=== PATIENT | male | born 1960 | race Caucasian/White ===

== ENCOUNTER → 2017-05-21 | Outpatient (CLI) | payer BC, OTHER ==
--- NOTE | 2017-05-21 12:41 | MR ---
EXAMINATION TYPE: MR lumbar spine wo con DATE OF EXAM: 05/21/2017 COMPARISON: NONE HISTORY: radiculopathy TECHNIQUE: Multiplanar, multisequence images of the lumbar spine were acquired. FINDINGS: There is a grade 2 anterolisthesis of L5 on S1 with pars interarticularis defects bilaterally. Remain dominik of the lumbar spine maintains normal alignment. Bone marrow signal is within normal limits. Conus medullaris is unremarkable terminating at T12-L1. Vertebral body heights are maintained. L1-L2: Normal disc appearance without desiccation. No herniation, protrusion or disc bulging. No ca nal stenosis is present. Foramina are patent bilaterally. L2-L3: There is a broad-based disc bulge, mild ligamentum flavum buckling, and mild facet arthropathy resulting in minimal bilateral neural foraminal narrowing. No spinal canal stenosis. L3-L4: There is a broad-based disc bulge, ligamentum flavum buckling and mild facet arthropathy resul ting in mild bilateral neural foraminal narrowing. No spinal canal stenosis. L4-L5: There is a central disc protrusion/herniation superimposed upon a broad-based disc bulge mildl y narrowing the spinal canal. Ligamentum flavum buckling, facet arthropathy, and left posterior Tarlo v cyst/synovial cyst are seen. There is severe left facet arthropathy resultant severe left neural fo raminal narrowing and moderate right neural foraminal narrowing. L5-S1: There is disc uncovering from the grade 2 anterolisthesis with a left eccentric broad-based di sc bulge creating severe left neural foraminal stenosis. Severe left facet arthropathy is noted. Ther e is mild resultant spinal canal stenosis. Right neural foramen is patent. IMPRESSION: 1. Central disc herniation at L4-L5 creating mild spinal canal stenosis. Severe left neural foraminal narrowing is also noted at this level from facet arthropathy and a broad-based disc bulge. 2. Grade 2 anterolisthesis of L5 on S1 and severe left facet arthropathy resulting in severe left kaye ral foraminal narrowing and mild spinal canal stenosis. 3. Degenerative disc disease at L2-L4 resulting in mild bilateral neural foraminal narrowing.
== END | disposition home or self-care (01) ==
LOC: RADMRIMAIN 11:03
PROVIDERS: ATTEND Family Medicine
DX: M48.061 Spinal stenosis, lumbar region without neurogenic claudication (principal); M51.16 Intervertebral disc disorders with radiculopathy, lumbar region; M99.73 Connective tissue and disc stenosis of intervertebral foramina of lumbar region; M43.17 Spondylolisthesis, lumbosacral region; M46.96 Unspecified inflammatory spondylopathy, lumbar region
CPT/HCPCS: 72148

== ENCOUNTER → 2017-06-23 | Outpatient (CLI) | payer BC ==
[2017-06-23 14:26] VITALS: BP 159/102; PULSE 84; RESP 18; TEMP 98.2
--- NOTE | 2017-06-24 12:56 | P.CONS ---
History of Present Illness - Reason for Consult Consult date: 06/24/17 - History of Present Illness This is 57 years old male, with a chronic history of severe low back pain with radiation to the left lower extremity, started February 2017, he denies any initiating event, there is no history of trauma or car accident no history of heavy lifting, he reported that the pain started suddenly without any incident, pain is constant and associated with numbness and tingling sensation in the left lower extremity, and still the pain is 7/10 and increases with activity, he denies any motor or sensory deficit he denies any change in her bowel movement or urination, he denies any fever or night sweats, Past Medical History Past Medical History: Hyperlipidemia, Hypertension Additional Past Medical History / Comment(s): Back Pain History of Any Multi-Drug Resistant Organisms: None Reported Past Surgical History: Tonsillectomy Additional Past Surgical History / Comment(s): stress test 1 mon ago was negative Past Anesthesia/Blood Transfusion Reactions: No Reported Reaction Past Psychological History: No Psychological Hx Reported Smoking Status: Former smoker Past Alcohol Use History: None Reported Past Drug Use History: None Reported - Past Family History Mother Additional Family Medical History / Comment(s): pancreatic cancer Father Additional Family Medical History / Comment(s): mesotheilioma, cad uncles Medications and Allergies Home Medications Medication Instructions Recorded Confirmed Type Aspirin 81 mg PO QAM 06/29/15 06/23/17 History Citalopram Hydrobromide [CeleXA] 40 mg PO BID 06/29/15 06/23/17 History Compounded Testosterone Cream 1 applic TOPICAL DAILY 06/29/15 06/23/17 History Enalapril Maleate [Vasotec] 10 mg PO BID 06/29/15 06/23/17 History Hydrocodone/Acetaminophen [Hatton 1 tab PO Q6H PRN 06/29/15 06/23/17 History 10-325] L.acidoph,Paracasei, B.lactis 1 cap PO QAM 06/29/15 06/23/17 History [Probiotic] LORazepam [Ativan] 1 mg PO DAILY PRN 06/29/15 06/23/17 History Metaxalone 800 mg PO BID 06/29/15 06/23/17 History Metoprolol Tartrate [Lopressor] 25 mg PO HS 06/29/15 06/23/17 History Metoprolol Tartrate [Lopressor] 50 mg PO QAM 06/29/15 06/23/17 History Milk Thistle 150 mg PO QAM 06/29/15 06/23/17 History Multivitamin [Men's Multi-Vitamin] 1 tab PO QAM 06/29/15 06/23/17 History Nitroglycerin Sl Tabs [Nitrostat] 0.4 mg SUBLINGUAL Q5M PRN 06/29/15 06/23/17 History Pantoprazole Sodium 40 mg PO QAM 06/29/15 06/23/17 History SUMAtriptan SUCCINATE [Imitrex] 50 mg PO DAILY PRN 06/29/15 06/23/17 History Simvastatin [Zocor] 40 mg PO HS 06/29/15 06/23/17 History amLODIPine [Norvasc] 10 mg PO DAILY 30 Days tab 07/01/15 06/23/17 Rx Calcium Carbonate [Calcium] 600 mg PO DAILY 06/23/17 06/23/17 History Cyclobenzaprine [Flexeril] 10 mg PO BID 06/23/17 06/23/17 History HYDROcodone/APAP 5-325MG [Hatton PO PRN 06/23/17 History 5-325] Ibuprofen [Motrin] 800 mg PO TID 06/23/17 06/23/17 History Krill Oil 500 mg PO DAILY 06/23/17 06/23/17 History Testosterone [Androgel 1% Gel Pump] 1 applic TOPICAL 06/23/17 History traMADol HCL [Ultram] 100 mg PO TID 06/23/17 06/23/17 History Allergies Allergy/AdvReac Type Severity Reaction Status Date / Time No Known Allergies Allergy Verified 06/29/15 16:11 Physical Exam Vitals: Vital Signs Temp Pulse Resp BP 06/23/17 14:16 98.2 F 84 18 159/102 Social history : not smoker , NO ETOH , NO Illegal drugs use . Review of Systems : 1- Constitutional : no chills , no fever , no night sweats , 2- Ears : no ear discharge , no change in hearing 3-Nose, Mouth ,Throat ; no bleeding gums, no sore throat , no epistaxis , 4-Cardiovascular : Denies chest pain, , no orthopnea , no palpitation 5-Respiratory : Denies cough , no dyspnea , no hemoptysis 6-Gastrointestinal :, no change in bowel habits , no coffee- ground emesis . 7-Genitourinary : No hematuria , no discharge , no incontinence, 8-Musculoskeletal : No gait dysfunction , report low back pain , 9- Neurological : no ataxia , no tremor , no sezure , 10-Psychatric , no suicidal ideation no hallucination 11- Endocrine : no cold intolerence , no polyuria , no polydypsia , 12-Hematologic : no easy bleeding , no easy brusing , 13-Allergic / immunology : no angioedema , no wheezing ,no allergic rhinitis 14-Integumentary : no brttle nails , no change hair / nails , no foot/leg ulcers . Physical Examinations : 1-Constitutional : Cooperative , not in acute distress . 2-HEENT : nech ; supple , no Lymphadenopathy , no Thyromegaly , :eyes , no icterus, no photophobia . ENT : , normal oropharynx , no Thrush 3- Respiratory : Chest clear to auscultations Bilaterally , no wheezing . 4- Cardiovascular : regular rate and rhythem , S1 , S2 , no S3 , no S4. 5- Gastrointestinal: abdomen soft no tenderness , no organomegally . 6- Genitourinary : Defferred . 7-Integumentary : No cellulitis , no ulcers , normal skin turgor , no cyanotic . 8- neurologic : Cranial nerve II to XII intact , no focal neurological deffecit 9-psychatric : alert , oriented X 3 , appropriate affect , intact judgment and insight . 10-Lymphatic : no Lymphadenopathy. 11- musculoskeltal: normal gait . Lumber spine moter stegnth lower extremities ,thigh and legs 5/5 Right side , 5/5 Left side deep tendon reflexes : normal Knee Jerk , normal ankle Jerk negative lumber facet Loading Test Range of motion of the lumbar spine Flexion 30 degrees, extension 10 degrees strait leg raising test , positive at 30 degree left side , negative on the right side Fabere test and positive LT . Negative on the right side Results Comments: MRI of the lumbar spine= done 05/21/2017= L2 3 L3 4 L4 5 and L5-S1 disc protrusion/herniation L5-S1 left foraminal stenosis and there is severe facet arthropathy at L3 4 L4 5 and L5-S1 Assessment and Plan Plan: Assessment and plan=1 lumbar radiculopathic 2-lumbar spinal stenosis 3-lumbar herniated disc disease 4-lumbar facet arthropathy. Patient will be good candidate to have lumbar epidural steroid injections under fluoroscopy guidance. Procedure risk and benefits and alternatives discussed with the patient and he agreed with proceeding. Time with Patient: Greater than 30
== END | disposition home or self-care (01) ==
LOC: PNWHC3 13:17
PROVIDERS: ATTEND Specialist
DX: M48.061 Spinal stenosis, lumbar region without neurogenic claudication (principal); M51.16 Intervertebral disc disorders with radiculopathy, lumbar region; M46.86 Other specified inflammatory spondylopathies, lumbar region; E78.5 Hyperlipidemia, unspecified; I10 Essential (primary) hypertension; Z79.899 Other long term (current) drug therapy; Z79.82 Long term (current) use of aspirin; Z79.891 Long term (current) use of opiate analgesic; Z79.1 Long term (current) use of non-steroidal anti-inflammatories (NSAID); Z87.891 Personal history of nicotine dependence
CPT/HCPCS: 99211

== ENCOUNTER 2017-07-26 07:33 | Day surgery (SDC) | payer BC ==
[2017-07-26] MEDS: LACTATED RINGERS 1,000 ML IV SCH ×2 (09:50→09:54)
[2017-07-26 09:57] VITALS: TEMP 97.6
--- NOTE | 2017-07-26 10:14 | P.PCN ---
Date of Procedure: 07/26/17 Procedure(s) Performed: PREOPERATIVE DIAGNOSIS: 1- Lumbar herniated Disc Diseases 2-Lumbar spondylosis with Facet arthropathy without myelopathy. 3-lumbar radiculopathy. 4-lumbar spinal stenosis. POSTOPERATIVE DIAGNOSIS: Same preoperative diagnosis. PROCEDURE 1. Lumbar epidural steroid injection under fluoroscopic guidance at the L4-5 level. 2. Lumbar epidurogram. ANESTHESIA: Local with 1% lidocaine 3 ml and , moderate sedation with intravenous Versed 2 mg ,and fentanyle 50 Mcg EBL: Minimal PROCEDURE INDICATION: The patient with low back pain and radiculitis symptoms unresponsive to conservative treatment. Fluoroscopy was used to optimize visualization of the needle placement and to maximize safety. PROCEDURE DESCRIPTION / TECHNIQUE: The patient was seen and identified in the preoperative area. Risks, benefits , complications including but not limited to infections ,bleeding ,allergic reaction to the medications ,nerve damage and not complete pain releife , and alternatives were discussed with the patient. The patient agreed to proceed with the procedure and signed the consent. IV was started, and vital signs were stable. Patient was taken to the OR and time out was completed. The patient was placed in the prone position on procedure table and a pillow was placed under the abdomen to reduce lumbar lordosis. The lumbosacral area was prepped and draped in the usual sterile fashion.ere closely monitored during the procedure. Conscious sedation was used during the procedure to decrease patients anxiety. Vital signs was monitered during the entire procedure. Using anterior-posterior fluoroscopy, the L4-5 interlaminar space was identified and the skin over this site was marked and then infiltrated with 1% lidocaine subcutaneously. Subsequently, a 20-gauge Tuohy epidural needle was inserted and advanced toward the epidural space using the ``Loss of resistance technique and guided by AP and lateral fluoroscopy. The correct needle position in the epidural space was verified with the injection of 2 mL of the water soluble contrast dye Isovue 200 contrast and observing an excellent epidurogram with the epidural spread of the dye, after negative aspiration for blood and CSF and in the absence of paresthesias. Again after negative aspiration, a 6 ml mixture containing 20 mg of Dexamethasone and 2 ml of preservative free Normal Saline, and 2 ml of preservative free lidocaine 1% solution was injected and a washout of epidurogram was seen. Needle was withdrawn intact, skin was cleansed, and bandages were applied. COMPLICATIONS: None DISPOSITION / PLANS: The patient was placed in a supine position and transferred to the recovery area in a stable condition for observation. There was no evidence of lower extremity motor or sensory deficit after the procedure. Patient was discharged from the recovery room after meeting discharge criteria. Home discharge instructions were given to the patient by the staff. The patient was reexamined prior to discharge. The patient will schedule a follow up in the clinic in 2-4 weeks.
[2017-07-26] MEDS ORDERED: IV FLUID CONTINUATION 1,000 ML IV ONE (10:28)
[2017-07-26] MEDS ORDERED: METOPROLOL TARTRATE 25 MG TAB PO STA (10:36)
--- NOTE | 2017-07-26 11:19 | FL ---
EXAMINATION TYPE: FL guided pain mgmt statistic DATE OF EXAM: 07/26/2017 HISTORY: Flouroscopy time 2 seconds of fluoroscopy provided. IMPRESSION: 1. Fluoroscopy time.
[2017-07-26 11:22] VITALS: BP 162/98; PULSE 67; RESP 18
== END 2017-07-26 11:35 | disposition home or self-care (01) ==
LOC: ORPAIN 07:33
PROVIDERS: ATTEND Specialist
DX: M51.16 Intervertebral disc disorders with radiculopathy, lumbar region (principal); M47.26 Other spondylosis with radiculopathy, lumbar region; M48.061 Spinal stenosis, lumbar region without neurogenic claudication; H91.90 Unspecified hearing loss, unspecified ear
CPT/HCPCS: 62323; J2250; J3301; J3010; Q9966

== ENCOUNTER 2017-08-17 06:03 | Day surgery (SDC) | payer BC ==
[2017-08-13 10:52] VITALS: BMI 29.2
[~2017-08-17 06:03] MED LIST: LACTATED RINGERS 1,000 ML IV SCH
[2017-08-17 07:18] VITALS: RESP 16; TEMP 97.5
[2017-08-17] MEDS ORDERED: LIDOCAINE 1% 20 ML VIAL (10MG/ML) FOR IV START INTRADERMA ONE (07:25)
--- NOTE | 2017-08-17 07:52 | P.PCN ---
Date of Procedure: 08/17/17 Procedure(s) Performed: PREOPERATIVE DIAGNOSIS: 1- Lumbar herniated Disc Diseases 2-Lumbar spondylosis with Facet arthropathy without myelopathy. 3-lumbar radiculopathy. 4-lumbar spinal stenosis. POSTOPERATIVE DIAGNOSIS: Same as preoperative diagnosis. PROCEDURE 1. Lumbar epidural steroid injection under fluoroscopic guidance at the L4-5 level. 2. Lumbar epidurogram. ANESTHESIA: Local with 1% lidocaine 3 ml and , moderate sedation with intravenous Versed 2 mg ,and fentanyle 50 Mcg EBL: Minimal PROCEDURE INDICATION: The patient with low back pain and radiculitis symptoms unresponsive to conservative treatment. Fluoroscopy was used to optimize visualization of the needle placement and to maximize safety. PROCEDURE DESCRIPTION / TECHNIQUE: The patient was seen and identified in the preoperative area. Risks, benefits , complications including but not limited to infections ,bleeding ,allergic reaction to the medications ,nerve damage and not complete pain releife , and alternatives were discussed with the patient. The patient agreed to proceed with the procedure and signed the consent. IV was started, and vital signs were stable. Patient was taken to the OR and time out was completed. The patient was placed in the prone position on procedure table and a pillow was placed under the abdomen to reduce lumbar lordosis. The lumbosacral area was prepped and draped in the usual sterile fashion.ere closely monitored during the procedure. Conscious sedation was used during the procedure to decrease patients anxiety. Vital signs was monitered during the entire procedure. Using anterior-posterior fluoroscopy, the L4-5 interlaminar space was identified and the skin over this site was marked and then infiltrated with 1% lidocaine subcutaneously. Subsequently, a 20-gauge Tuohy epidural needle was inserted and advanced toward the epidural space using the ``Loss of resistance technique and guided by AP and lateral fluoroscopy. The correct needle position in the epidural space was verified with the injection of 2 mL of the water soluble contrast dye Isovue 200 contrast and observing an excellent epidurogram with the epidural spread of the dye, after negative aspiration for blood and CSF and in the absence of paresthesias. Again after negative aspiration, a 6 ml mixture containing 80 mg depomedrol , and 2 ml of preservative free Normal Saline, and 2 ml of preservative free lidocaine 1% solution was injected and a washout of epidurogram was seen. Needle was withdrawn intact, skin was cleansed, and bandages were applied. COMPLICATIONS: None DISPOSITION / PLANS: The patient was placed in a supine position and transferred to the recovery area in a stable condition for observation. There was no evidence of lower extremity motor or sensory deficit after the procedure. Patient was discharged from the recovery room after meeting discharge criteria. Home discharge instructions were given to the patient by the staff. The patient was reexamined prior to discharge. The patient will schedule a follow up in the clinic in 2-4 weeks.
[2017-08-17] MEDS ORDERED: IV FLUID CONTINUATION 1,000 ML IV ONE (07:58)
[2017-08-17] MEDS ORDERED: ENALAPRILAT 1.25 MG/ML 1 ML VIAL IVP STA (08:13)
--- NOTE | 2017-08-17 08:36 | FL ---
Fluoroscopy HISTORY: Pain 1 seconds fluoroscopy time supplied to the referring clinician. 1 intraoperative C-arm images docume nt the procedure. See dictated report from anesthesia.
[2017-08-17 08:43] VITALS: BP 133/88; PULSE 67
== END 2017-08-17 09:07 | disposition home or self-care (01) ==
LOC: ORPAIN 06:03
PROVIDERS: ATTEND Specialist
DX: M51.16 Intervertebral disc disorders with radiculopathy, lumbar region (principal); M47.26 Other spondylosis with radiculopathy, lumbar region; M48.061 Spinal stenosis, lumbar region without neurogenic claudication; I10 Essential (primary) hypertension
CPT/HCPCS: 62323; J2250; J1030; J3010; Q9966

== ENCOUNTER 2017-09-09 06:08 | Day surgery (SDC) | payer BC ==
[2017-09-03 15:40] VITALS: BMI 28.5
[2017-09-09 06:31] VITALS: TEMP 97.1
[2017-09-09] MEDS ORDERED: LIDOCAINE 1% 20 ML VIAL (10MG/ML) FOR IV START INTRADERMA ONE (06:43)
--- NOTE | 2017-09-09 06:53 | P.PCN ---
Date of Procedure: 09/09/17 Description of Procedure: PREOPERATIVE DIAGNOSIS: 1- Lumbar herniated Disc Diseases 2-Lumbar spondylosis with Facet arthropathy without myelopathy. 3-lumbar radiculopathy. 4-lumbar spinal stenosis. POSTOPERATIVE DIAGNOSIS: Same as preoperative diagnosis. PROCEDURE 1. Lumbar epidural steroid injection under fluoroscopic guidance at the L5-S1 level. 2. Lumbar epidurogram. ANESTHESIA: Local with 1% lidocaine 3 ml and , moderate sedation with intravenous Versed 2 mg ,and fentanyle 50 mcg EBL: Minimal PROCEDURE INDICATION: The patient with low back pain and radiculitis symptoms unresponsive to conservative treatment. Fluoroscopy was used to optimize visualization of the needle placement and to maximize safety. PROCEDURE DESCRIPTION / TECHNIQUE: The patient was seen and identified in the preoperative area. Risks, benefits , complications including but not limited to infections ,bleeding ,allergic reaction to the medications ,nerve damage and not complete pain releife , and alternatives were discussed with the patient. The patient agreed to proceed with the procedure and signed the consent. IV was started, and vital signs were stable. Patient was taken to the OR and time out was completed. The patient was placed in the prone position on procedure table and a pillow was placed under the abdomen to reduce lumbar lordosis. The lumbosacral area was prepped and draped in the usual sterile fashion.ere closely monitored during the procedure. Conscious sedation was used during the procedure to decrease patients anxiety. Vital signs was monitered during the entire procedure. Using anterior-posterior fluoroscopy, the L4-5 interlaminar space was identified and the skin over this site was marked and then infiltrated with 1% lidocaine subcutaneously. Subsequently, a 20-gauge Tuohy epidural needle was inserted and advanced toward the epidural space using the ``Loss of resistance technique and guided by AP and lateral fluoroscopy. The correct needle position in the epidural space was verified with the injection of 2 mL of the water soluble contrast dye Isovue 200 contrast and observing an excellent epidurogram with the epidural spread of the dye, after negative aspiration for blood and CSF and in the absence of paresthesias. Again after negative aspiration, a 6 ml mixture containing 80 mg depomedrol , and 2 ml of preservative free Normal Saline, and 2 ml of preservative free lidocaine 1% solution was injected and a washout of epidurogram was seen. Needle was withdrawn intact, skin was cleansed, and bandages were applied. COMPLICATIONS: None DISPOSITION / PLANS: The patient was placed in a supine position and transferred to the recovery area in a stable condition for observation. There was no evidence of lower extremity motor or sensory deficit after the procedure. Patient was discharged from the recovery room after meeting discharge criteria. Home discharge instructions were given to the patient by the staff. The patient was reexamined prior to discharge. The patient will schedule a follow up in the clinic in 4 weeks
[2017-09-09] MEDS ORDERED: IV FLUID CONTINUATION 1,000 ML IV ONE (07:18)
[2017-09-09 07:32] VITALS: RESP 16
[2017-09-09 07:43] VITALS: BP 153/101; PULSE 59
--- NOTE | 2017-09-09 09:29 | FL ---
Fluoroscopy HISTORY: Pain 3 seconds fluoroscopy time supplied to the referring clinician. 1 intraoperative C-arm images docume nt the procedure. See dictated report from anesthesia.
== END 2017-09-09 07:55 | disposition home or self-care (01) ==
LOC: ORPAIN 06:08
PROVIDERS: ATTEND Anesthesiology
DX: M51.16 Intervertebral disc disorders with radiculopathy, lumbar region (principal); M47.26 Other spondylosis with radiculopathy, lumbar region; M48.061 Spinal stenosis, lumbar region without neurogenic claudication
CPT/HCPCS: 62323; J2250; J3301; J3010; Q9966

== ENCOUNTER → 2017-09-28 | Outpatient (CLI) | payer BC ==
[2017-09-28 12:02] VITALS: BP 147/104; PULSE 82; RESP 18
--- NOTE | 2017-09-28 12:43 | P.PN ---
Progress Note - Text Progress Note Date: 09/28/17 Progress Note - Text Progress Note Date: 06/09/17 Patient returns for follow-up visit with chief complaint of chronic low back pain radiating to lower extremities. Patient had a series of lumbar epidural steroid injections with the last being complete 1 month ago. Patient states he' s had good relief with epidural steroid injections. Greater than 90%.. Patient follows up with Dr. Garduno a neurosurgeon in [place], who is currently holding off on any surgical intervention to assess effectiveness of lumbar epidural steroid injections. Patient wishes to continue with conservative therapies for now and will call clinic if low back pain returns for another epidural steroid injection. In addition to above, 13-point review of systems is also negative for chest pain , shortness of breath, changes in vision, changes in hearing, new onset weakness , abdominal pain, diarrhea, extreme fatigue, malaise, fever, skin changes, homicidal or suicidal ideation, or bowel or bladder incontinence. Vital Signs: Reviewed in EMR Gen: WDWN, AAOx3, NAD HEENT: NCAT, EOMI, hearing grossly normal Pulm: resp unlabored Neck: supple, trachea midline ROM in flexion lumbar spine: Minimally reduced ROM in extension lumbar spine: significant reduction Lumbar paravertebral tenderness: Minimally tender Facet loading: + bilateral, R > L SI joint tenderness: Negative Michael's test: Negative Straight leg raise: Slightly positive Neuro: CN II-XII grossly intact, muscle strength lower extremities PRESERVED MRI lumbar spine :Central disc herniation at L4 5 producing mild spinal canal stenosis. Left neural foraminal narrowing. Grade 2 anterior listhesis of L5 and S1. Severe facet arthropathy at L4 5 and L5-S1. Degenerative disc disease at L2 to L4 Assessment: 1. Lumbar radiculopathy 2. Lumbar spondylolisthesis at L5-S1, grade 2 3. Lumbar degenerative disc disease Plan: 1. Explanation: Opioid and psychological risk scores were reviewed. Diagnoses , prognoses, and multiple treatment options including but not limited to physical therapy, interventional therapies, adjuvant medical therapies, narcotic medication therapies, and surgery were discussed with the patient and all questions were answered to the patient's satisfaction. 2. Opioid agreement: Patient has previously signed narcotic agreement, and was orally counseled to not overuse, abuse, divert, or cell medications, and to take them as prescribed by only 1 healthcare provider. The patient was also counseled to store opioid medications in a safe and preferably locked location. Patient was also counseled against driving or operating heavy equipment while using narcotic medications and also to not use alcohol or any illicit or recreational drugs. The patient verbalized understanding that lack of compliance with any of the above and likely result in failure to renew narcotic prescriptions, possible discharge from the clinic, and possible legal ramifications thereafter if indicated. 3. Counseling: The patient was counseled extensively on BODY MASS INDEX, EXERCISE. Specifically, the patient was instructed regarding the importance of weight control, and exercise in the context of both chronic pain and overall health. 4. Procedures: Lumbar epidural steroid injection in the future 5. Consultations: None 6. Investigations: None 7. Medications: No medications given today 8. Disposition: Follow up as needed for lumbar epidural steroid injections PQRS measures: 1-Patient's medications are documented in the chart. 2-Tobacco use is negative 3-Patient has not had a pneumococcal vaccine. 4-Advanced care planning discussed, patient unable to give. 5-Opioid contract signed with the patient. 6-Pain positive, follow-up visit or procedure scheduled 7-Patient's blood pressure measured and documented, and patient will follow up with the primary care due to hypertension. 8-Patient's weight was measured, and body mass index ABOVE the normal limits, and counseling was done. Patient instructed to follow up with PCP. 9-Patient WAS NOT identified as an unhealthy alcohol user.
== END ==
LOC: PNWHC3 11:43
PROVIDERS: ATTEND Anesthesiology
DX: G89.29 Other chronic pain (principal); M54.5 Low back pain; M51.16 Intervertebral disc disorders with radiculopathy, lumbar region; M43.16 Spondylolisthesis, lumbar region
CPT/HCPCS: 99211

== ENCOUNTER → 2020-12-18 | Outpatient (CLI) | payer BC ==
--- NOTE | 2020-12-19 08:00 | US ---
EXAMINATION TYPE: US groin RT DATE OF EXAM: 12/18/2020 COMPARISON: NONE CLINICAL HISTORY: S76.011A Strain of muscle, fascia and tendon of. pain right groin Scanned right groin within patient's area of concern, no distinct abnormality by ultrasound at this t belem IMPRESSION: Limited right groin ultrasound, no abnormality evident, MRI may be of benefit
== END | disposition home or self-care (01) ==
LOC: RADUSWWP 15:50
PROVIDERS: ATTEND Family Medicine
DX: S76.011A Strain of muscle, fascia and tendon of right hip, initial encounter (principal); X58.XXXA Exposure to other specified factors, initial encounter

== ENCOUNTER → 2021-03-25 | Outpatient (CLI) | payer BC ==
--- NOTE | 2021-03-25 15:44 | XR ---
EXAMINATION TYPE: XR Hip Complete RT DATE OF EXAM: 03/25/2021 COMPARISON: NONE HISTORY: Pain TECHNIQUE: 2 views submitted FINDINGS: There is no evidence of erosive change or acute fracture. Hypertrophic change of the acetabulum mild concentric narrowing of the joint space. Spur along the greater trochanter. IMPRESSION: 1. Arthropathy correlate for femoral acetabular impingement. 2. Small spur along the greater trochanter can be associated with trochanteric bursitis. Correlate cl inically.
== END | disposition home or self-care (01) ==
LOC: RADXRMAIN 15:22
PROVIDERS: ATTEND Nurse Practitioner Family
DX: M12.851 Other specific arthropathies, not elsewhere classified, right hip (principal); M76.891 Other specified enthesopathies of right lower limb, excluding foot
CPT/HCPCS: 73502

== ENCOUNTER → 2022-07-02 | Outpatient (CLI) | payer BC ==
[2022-07-02 13:01] VITALS: BP 153/102; PULSE 83; RESP 18; TEMP 98.4
--- NOTE | 2022-07-02 13:10 | P.PAINCN ---
History of Present Illness - Reason for Consult Consult date: 07/02/22 - History of Present Illness This is the initial consultation isn't from the 62 years old male with a chronic history of severe low back pain, started more than a year ago, patient denies any initiating event and he reported that he worked as a regional refrigerated cdl truck driver, intensity of the pain increased over time and currently the pain is constant and increased with any activity interferes with the quality of life, its localized in the low back area with radiation to the posterior lateral aspect of lower extremity, he denies any fever or night sweats he denies any motor and sensory deficit he denies any change in bowel movement or urination, he tried home exercise, stretching and he uses Tylenol and ibuprofen and [place] for pain, provided him with some relief he tried to topical medication and he tried to chiropractic treatment,and he got only temporary benefit Past Medical History Past Medical History: Hyperlipidemia, Hypertension, Seizure Disorder, Skin Disorder Additional Past Medical History / Comment(s): Back Pain.. MIGRAINES. PATIENT STATES HE HAS SEVERAL ANEURYSMS, THAT DR. ESCOBAR IS 'WATCHING". History of Any Multi-Drug Resistant Organisms: None Reported Past Surgical History: Heart Catheterization, Tonsillectomy Additional Past Surgical History / Comment(s): PAIN CLINIC PROCEDURES Past Anesthesia/Blood Transfusion Reactions: No Reported Reaction Additional Past Anesthesia/Blood Transfusion Reaction / Comm: elevated BP -last pain clinic procedure Smoking Status: Former smoker - Past Family History Mother Family Medical History: Cancer Additional Family Medical History / Comment(s): pancreatic cancer Father Family Medical History: Cancer Additional Family Medical History / Comment(s): mesotheilioma Medications and Allergies Home Medications Medication Instructions Recorded Confirmed Type Aspirin 81 mg PO QAM 06/29/15 09/28/17 History Citalopram Hydrobromide [CeleXA] 40 mg PO BID 06/29/15 09/28/17 History Compounded Testosterone Cream 1 applic TOPICAL DAILY 06/29/15 09/28/17 History L.acidoph,Paracasei, B.lactis 1 cap PO QAM 06/29/15 09/28/17 History [Probiotic] LORazepam [Ativan] 1 mg PO DAILY PRN 06/29/15 09/28/17 History Metoprolol Tartrate [Lopressor] 25 mg PO HS 06/29/15 09/28/17 History Metoprolol Tartrate [Lopressor] 50 mg PO QAM 06/29/15 09/28/17 History Multivitamin [Men's Multi-Vitamin] 1 tab PO QAM 06/29/15 09/28/17 History Nitroglycerin Sl Tabs [Nitrostat] 0.4 mg SUBLINGUAL Q5M PRN 06/29/15 09/28/17 History Pantoprazole Sodium 40 mg PO QAM 06/29/15 09/28/17 History SUMAtriptan succinate [Imitrex] 50 mg PO DAILY PRN 06/29/15 09/28/17 History Simvastatin [Zocor] 40 mg PO HS 06/29/15 09/28/17 History Calcium Carbonate [Calcium] 600 mg PO DAILY 06/23/17 09/28/17 History Cyclobenzaprine [Flexeril] 10 mg PO BID 06/23/17 09/28/17 History Ibuprofen [Motrin] 800 mg PO TID 06/23/17 09/28/17 History traMADol HCL [Ultram] 100 mg PO TID 06/23/17 09/28/17 History HYDROcodone/APAP 7.5-325MG [[place] 1 tab PO Q6H PRN 07/21/17 09/28/17 History 7.5-325] Enalapril [Vasotec] 20 mg PO BID 09/03/17 09/28/17 History [place]-3/Dha/Epa/Fish Oil [Fish Oil 1 each PO DAILY 09/03/17 09/28/17 History 500 mg Softgel] Allergies Allergy/AdvReac Type Severity Reaction Status Date / Time No Known Allergies Allergy Verified 07/02/22 12:43 Physical Exam Vitals: Vital Signs Temp Pulse Resp BP Pulse Ox 07/02/22 12:49 98.4 F 83 18 153/102 97 Intake and Output 07/01/22 07/02/22 07/02/22 22:59 06:59 14:59 Other: Weight 101.151 kg Physical Examinations : -Constitutiona : Cooperative , not in acute distress . -HEENT : nech : supple , no Lymphadenopathy , normal thyroid size . : eyes : no ptosis , no icterus, no photophobia . - neurologic : Cranial nerve II to XII intact , no focal neurological deffecit . -psychatric : alert , oriented X 3 , appropriate affect , intact judgment and insight . -Lymphatic : no Lymphadenopathy . - musculoskeltal : Lumber spine moter stegnth lower extremities ,thigh and legs 5/5 Right side , 5/5 Left side deep tendon reflexes : normal Knee Jerk , normal ankle Jerk lumber facet Loading Test =positive Right , positive Left Range of motion of the lumbar spine Flexion 30 degrees, extension 10 degrees strait leg raising test = positive at 60 degree Fabere test= positive Right , and positive LT . tenderness over the Sacroiliac joint on the Right , and Left sides Gaenslen test= positive right ,and positive left . Results Comments: MRI of the lumbar spine= multilevel lumbar degenerative disc disease multilevel lumbar foraminal stenosis and multilevel severe facet arthropathy Assessment and Plan Plan: Assessment and plan= chronic low back pain secondary to lumbar degenerative disc disease , lumbar spondylosis with lumbar facet arthropathy . Lumbar foraminal stenosis He shouldn't be good candidate for diagnostic medial branch block lumbar area at L4 5 and L5-S1 x2 and if he has a positive result and will proceed with RFA I have spent 35 minutes on patient care today. The time was used to review the medical records including relevant urine studies and Prescription history (MAPs), review of the available imaging, evaluation and examination of the patient, coordination of care with the medical staff and if applicable referring physicians, as well as creation of the medical record. Maps were checked and appropriate, opioid start talking form is on file and updated, urine drug screens of been appropriate and have been reviewed. , Time with Patient: Greater than 30 PQRS Measure Charge Sheet Measure #130: Documentation of Current Meds in Medical Chart: Patient's medications documented in chart Measure #226: Tobacco Use: Screen & Cessation Intervention: Pt not a tobacco user Measure #111: Pneumonia Vaccination: Pneumococcal vaccine administered or previously received Measure #47: Advance Care Plan: Advance care planning discussed & documented, pt chose/unable to give Measure #412: Opioid Treatment Agreement: No documentation of signed opioid treatment agreement Measure #408: Opioid Therapy Follow-up Evaluation: Patient had NO f/u eval minimum every 3 months during opioid therapy Measure #317: Preventitive Care & Scrn High Bld Press & F/U: Pre-hypertensive or hypertensive BP documented, pt will f/u with PCP Measure #128: Body Mass Index (BMI) Screening & Follow-up: BMI documented ABOVE normal parameters - f/u documented Measure #131: Pain Assessment & Follow-up: Pain positive & plan documented, Follow-up scheduled Measure #431: Unhealthy Alcohol Use Preventative Care & Scrn: Patient not identified as an unhealthy alcohol user Mode of Arrival: Ambulatory - Pain Location Bilateral Lower Back Non-Pharmacological Interventions: Chiropractic Treatment, Heat, Ice, Inactivity Pharmacological Interventions: Epidural, PRN Medication, Topical Medication PQRS Narrative: Smoking Status Former smoker Blood Pressure 153/102 Pain Intensity [Bilateral 8 Lower Back] Scale Used Numeric (1 - 10) Hx Alcohol Use (MH) Yes: SOCIAL Home Medications: Ambulatory Orders Aspirin 81 mg PO QAM 06/29/15 Citalopram Hydrobromide [CeleXA] 40 mg PO BID 06/29/15 Compounded Testosterone Cream 1 applic TOPICAL DAILY 06/29/15 L.acidoph,Paracasei, B.lactis [Probiotic] 1 cap PO QAM 06/29/15 LORazepam [Ativan] 1 mg PO DAILY PRN 06/29/15 Metoprolol Tartrate [Lopressor] 25 mg PO 06/29/15 Metoprolol Tartrate [Lopressor] 50 mg PO QAM 06/29/15 Multivitamin [Men's Multi-Vitamin] 1 tab PO QAM 06/29/15 Nitroglycerin Sl Tabs [Nitrostat] 0.4 mg SUBLINGUAL Q5M PRN 06/29/15 Pantoprazole Sodium 40 mg PO QAM 06/29/15 SUMAtriptan succinate [Imitrex] 50 mg PO DAILY PRN 06/29/15 Simvastatin [Zocor] 40 mg PO 06/29/15 Calcium Carbonate [Calcium] 600 mg PO DAILY 06/23/17 Cyclobenzaprine [Flexeril] 10 mg PO BID 06/23/17 Ibuprofen [Motrin] 800 mg PO TID 06/23/17 traMADol HCL [Ultram] 100 mg PO TID 06/23/17 HYDROcodone/APAP 7.5-325MG [[place] 7.5-325] 1 tab PO Q6H PRN 07/21/17 Enalapril [Vasotec] 20 mg PO BID 09/03/17 [place]-3/Dha/Epa/Fish Oil [Fish Oil 500 mg Softgel] 1 each PO DAILY 09/03/17
== END ==
LOC: PNWHC3 12:20
PROVIDERS: ATTEND Specialist
DX: M51.36 Other intervertebral disc degeneration, lumbar region (principal); M48.061 Spinal stenosis, lumbar region without neurogenic claudication; M47.816 Spondylosis without myelopathy or radiculopathy, lumbar region; G89.29 Other chronic pain; Z79.82 Long term (current) use of aspirin; Z87.891 Personal history of nicotine dependence; E78.5 Hyperlipidemia, unspecified; I10 Essential (primary) hypertension; G40.909 Epilepsy, unspecified, not intractable, without status epilepticus; G43.909 Migraine, unspecified, not intractable, without status migrainosus
CPT/HCPCS: 99211

== ENCOUNTER → 2022-09-12 | Outpatient (CLI) | payer BC ==
--- NOTE | 2022-09-12 13:14 | XR ---
EXAMINATION TYPE: XR foot complete LT DATE OF EXAM: 09/12/2022 12:52 PM INDICATION: Patient age:Male; 62 years old; Reason for study: M79.673 Pain foot M17.9 OA KNEE; COMPARISON: 11/30/2014 TECHNIQUE: The left foot was examined in the AP, oblique, and lateral projections. FINDINGS: No evidence of any acute osseous pathology. No evidence of soft tissue swelling. Joints are preserve d. Accessory ossicle is present near the cuboid. The fifth metatarsal is intact. There is degeneratio n changes scattered throughout most proximal at the first digit metatarsophalangeal joint with joint space narrowing and osteophytic change. IMPRESSION: 1. No evidence of acute fracture. No finding to correlate patient's pain near the fifth metatarsal. 2. Osteoarthritis changes worse at the first digit metatarsophalangeal joint.
--- NOTE | 2022-09-12 13:15 | XR ---
EXAMINATION TYPE: XR knee complete RT DATE OF EXAM: 09/12/2022 12:52 PM INDICATION: Patient age:Male; 62 years old; Reason for study: M79.673 Pain foot M17.9 OA KNEE; COMPARISON: None. TECHNIQUE: The Right knee(s) was examined in Frontal, lateral and oblique projections. FINDINGS: No evidence of any acute osseous pathology, soft tissue swelling, or joint effusion is no mahad. Tricompartmental osteophyte formation involving the femoral condyles, tibial plateau and patella. Mi ld joint space narrowing. Enthesophyte of the quadriceps insertion on the patella. IMPRESSION: 1. No acute osseous pathology. 2. Mild tricompartmental osteoarthritic changes.
== END | disposition home or self-care (01) ==
LOC: RADXRMAIN 12:00
PROVIDERS: ATTEND Family Medicine
DX: M17.11 Unilateral primary osteoarthritis, right knee (principal); M19.072 Primary osteoarthritis, left ankle and foot

== ENCOUNTER 2024-09-28 10:05 | Day surgery (SDC) | payer BC ==
--- NOTE | 2024-09-28 07:35 | P.GSHP ---
History of Present Illness H&P Date: 09/28/24 CHIEF COMPLAINT: Dysphagia and colon screen HISTORY OF PRESENT ILLNESS: The patient is a 64-year-old male who presents with dysphagia, gastroesophageal reflux disease and need for colon screen. Upper and lower endoscopy were offered for further evaluation and management. PAST MEDICAL HISTORY: Please see list. PAST SURGICAL HISTORY: Please see list. MEDICATIONS: Please see list. ALLERGIES: Please see list. SOCIAL HISTORY: No illicit drug use FAMILY HISTORY: No reports of Crohn disease or ulcerative colitis. REVIEW OF ORGAN SYSTEMS: CONSTITUTIONAL: No reports of fevers or chills. GI: Denies any blood in stools or constipation. PHYSICAL EXAM: VITAL SIGNS: Stable GENERAL: Well-developed pleasant in no acute distress. HEENT: No scleral icterus. Extraocular movements grossly intact. Moist buccal mucosa. NECK: Supple without lymphadenopathy. CHEST: Unlabored respirations. Equal bilateral excursions. CARDIOVASCULAR: Regular rate and rhythm. Distal 2+ pulses. ABDOMEN: Soft, nondistended. MUSCULOSKELETAL: No clubbing, cyanosis, or edema. ASSESSMENT: 1. Dysphagia and gastroesophageal reflux disease 2. Colon screen. PLAN: 1. Recommend proceeding with an upper and lower endoscopy Past Medical History Past Medical History: Asthma, GERD/Reflux, Hyperlipidemia, Hypertension, Osteoarthritis (OA), Prostate Disorder Additional Past Medical History / Comment(s): Back Pain, sciatica, MIGRAINES. hx. Barbara', PATIENT STATES HE HAS SEVERAL ANEURYSMS, THAT DR. ESCOBAR IS 'WATCHING". hx. kidney stones, positive cologuard History of Any Multi-Drug Resistant Organisms: None Reported Past Surgical History: Heart Catheterization, Joint Replacement, Tonsillectomy Additional Past Surgical History / Comment(s): PAIN CLINIC PROCEDURES, right hip replaced 2023 Past Anesthesia/Blood Transfusion Reactions: No Reported Reaction Additional Past Anesthesia/Blood Transfusion Reaction / Comment(s): elevated BP -last pain clinic procedure Smoking Status: Former smoker - Past Family History Mother Family Medical History: Cancer Additional Family Medical History / Comment(s): pancreatic cancer Father Family Medical History: Cancer Additional Family Medical History / Comment(s): mesotheilioma Medications and Allergies Home Medications Medication Instructions Recorded Confirmed Type Aspirin 81 mg PO HS 06/29/15 09/26/24 History L.acidoph,Paracasei, B.lactis 1 cap PO QAM 06/29/15 09/26/24 History [Probiotic] LORazepam [Ativan] 1 mg PO DAILY PRN 06/29/15 09/26/24 History Metoprolol Tartrate [Lopressor] 50 mg PO BID 06/29/15 09/26/24 History Multivitamin [Men's Multi-Vitamin] 1 tab PO QAM 06/29/15 09/26/24 History SUMAtriptan succinate [Imitrex] 50 mg PO DAILY PRN 06/29/15 09/26/24 History Calcium Carbonate [Calcium] 600 mg PO DAILY 06/23/17 09/26/24 History Cyclobenzaprine [Flexeril] 10 mg PO BID 06/23/17 09/26/24 History Ibuprofen [Motrin] 800 mg PO TID PRN 06/23/17 09/26/24 History DULoxetine HCL [Cymbalta] 60 mg PO DAILY 09/26/24 09/26/24 History Diclofenac Sodium [Voltaren] 75 mg PO BID 09/26/24 09/26/24 History Famotidine/Ca Carb/Mag Hydrox 1 tab PO DIRECTED PRN 09/26/24 09/26/24 History [Pepcid Complete Tablet Chew] Garlic 1,000 mg PO DAILY 09/26/24 09/26/24 History Irbesartan/Hydrochlorothiazide 1 each PO DAILY 09/26/24 09/26/24 History [Irbesartan-Hctz 300-12.5 mg Tb] Krill/Om-3/Dha/Epa/Phospho/Ast 1 each PO DAILY 09/26/24 09/26/24 History [Krill Oil 500 mg Softgel] Omeprazole 20 mg PO HS 09/26/24 09/26/24 History Rosuvastatin [Crestor] 20 mg PO HS 09/26/24 09/26/24 History Tamsulosin HCl [Flomax] 0.8 mg PO HS 09/26/24 09/26/24 History Turmeric Root Extract [Turmeric] 1 tab PO DAILY 09/26/24 09/26/24 History rOPINIRole HCL [Requip] 0.5 mg PO HS 09/26/24 09/26/24 History Allergies Allergy/AdvReac Type Severity Reaction Status Date / Time No Known Allergies Allergy Verified 09/26/24 16:03
[~2024-09-28 10:05] MED LIST changes: -LACTATED RINGERS 1,000 ML IV SCH; +LIDOCAINE 1% (10MG/ML) FOR IV START INTRADERMA PRN
[2024-09-28] MEDS: IV FLUID CONTINUATION 1,000 ML IV ONE (10:23)
[2024-09-28] MEDS: LACTATED RINGERS 1,000 ML IV SCH (10:34)
[2024-09-28 10:36] VITALS: RESP 16; TEMP 97
[2024-09-28] MEDS ORDERED: PROPOFOL 10 MG/ML 20 ML VIAL IV ONE (10:51)
--- NOTE | 2024-09-28 11:16 | P.PCN ---
Date of Procedure: 09/28/24 Description of Procedure: PREOPERATIVE DIAGNOSIS: Abnormal stool test, positive Cologuard Colonoscopy screening. Family history colon cancer POSTOPERATIVE DIAGNOSIS: Colonoscopy screening. Diverticulosis, scattered. OPERATION: Colonoscopy to the cecum, ileocecal valve and appendiceal orifice. SURGEON: Sravani Coronado MD. ANESTHESIA: MAC. INDICATIONS: The patient is a 64-year-old male who presents for colonoscopy screening. Benefits and risks were described and informed consent was obtained. DESCRIPTION OF PROCEDURE: The patient had undergone Suprep. The patient had been brought into the operating room and laid in the left lateral decubitus position. After adequate intravenous sedation, the rectum was examined with 2% lidocaine jelly. No external hemorrhoids were encountered. The rectal tone was within normal limits. No lesions were palpated in the rectal vault. An Olympus colonoscope was advanced until the cecum, ileocecal valve and appendiceal orifice were clearly viewed. The prep was good. Scattered diverticulosis was encountered. No colonic polyps were found. No evidence of focal colitis was found. Retroflexion of the scope demonstrated grade 1 internal hemorrhoids without active bleeding or inflammation. The colon was desufflated. The patient had tolerated the procedure well. Withdrawal time was over 6 minutes. FINDINGS: Aronchick preparation quality scale 1+ (1-5) Internal hemorrhoids, grade 1 No external prolapsed hemorrhoids. No arteriovenous malformations. No adenomatous polyps. No focal colitis. Few scattered diverticulosis RECOMMENDATIONS: Lower endoscopy in 5 years2029 Plan - Discharge Summary Discharge Rx Participant: No New Discharge Prescriptions: Continue Metoprolol Tartrate [Lopressor] 50 mg PO BID LORazepam [Ativan] 1 mg PO DAILY PRN PRN Reason: Anxiety SUMAtriptan succinate [Imitrex] 50 mg PO DAILY PRN PRN Reason: Migraine Headache L.acidoph,Paracasei, B.lactis [Probiotic] 1 cap PO QAM Multivitamin [Men's Multi-Vitamin] 1 tab PO QAM Aspirin 81 mg PO HS Cyclobenzaprine [Flexeril] 10 mg PO BID Calcium Carbonate [Calcium] 600 mg PO DAILY Irbesartan/Hydrochlorothiazide [Irbesartan-Hctz 300-12.5 mg Tb] 1 each PO DAILY Rosuvastatin [Crestor] 20 mg PO HS Tamsulosin HCl [Flomax] 0.8 mg PO HS Krill/Om-3/Dha/Epa/Phospho/Ast [Krill Oil 500 mg Softgel] 1 each PO DAILY Famotidine/Ca Carb/Mag Hydrox [Pepcid Complete Tablet Chew] 1 tab PO DIRECTED PRN PRN Reason: Heartburn DULoxetine HCL [Cymbalta] 60 mg PO DAILY Omeprazole 20 mg PO HS rOPINIRole HCL [Requip] 0.5 mg PO HS Diclofenac Sodium [Voltaren] 75 mg PO BID Turmeric Root Extract [Turmeric] 1 tab PO DAILY Garlic 1,000 mg PO DAILY Discontinued Ibuprofen [Motrin] 800 mg PO TID PRN PRN Reason: Pain Discharge Medication List Aspirin 81 mg PO HS 06/29/15 [History] L.acidoph,Paracasei, B.lactis [Probiotic] 1 cap PO QAM 06/29/15 [History] LORazepam [Ativan] 1 mg PO DAILY PRN 06/29/15 [History] Metoprolol Tartrate [Lopressor] 50 mg PO BID 06/29/15 [History] Multivitamin [Men's Multi-Vitamin] 1 tab PO QAM 06/29/15 [History] SUMAtriptan succinate [Imitrex] 50 mg PO DAILY PRN 06/29/15 [History] Calcium Carbonate [Calcium] 600 mg PO DAILY 06/23/17 [History] Cyclobenzaprine [Flexeril] 10 mg PO BID 06/23/17 [History] DULoxetine HCL [Cymbalta] 60 mg PO DAILY 09/26/24 [History] Diclofenac Sodium [Voltaren] 75 mg PO BID 09/26/24 [History] Famotidine/Ca Carb/Mag Hydrox [Pepcid Complete Tablet Chew] 1 tab PO DIRECTED PRN 09/26/24 [History] Garlic 1,000 mg PO DAILY 09/26/24 [History] Irbesartan/Hydrochlorothiazide [Irbesartan-Hctz 300-12.5 mg Tb] 1 each PO DAILY 09/26/24 [History] Krill/Om-3/Dha/Epa/Phospho/Ast [Krill Oil 500 mg Softgel] 1 each PO DAILY 09/26/24 [History] Omeprazole 20 mg PO HS 09/26/24 [History] Rosuvastatin [Crestor] 20 mg PO HS 09/26/24 [History] Tamsulosin HCl [Flomax] 0.8 mg PO HS 09/26/24 [History] Turmeric Root Extract [Turmeric] 1 tab PO DAILY 09/26/24 [History] rOPINIRole HCL [Requip] 0.5 mg PO HS 09/26/24 [History] Follow up Appointment(s)/Referral(s): Sravani Coronado MD [STAFF PHYSICIAN] - 11/07/24 10:00 am Patient Instructions/Handouts: Gastritis (DC), Diverticulosis (DC) Activity/Diet/Wound Care/Special Instructions: Repeat colonoscopy in 5 years, 2030 Discharge Disposition: HOME SELF-CARE
--- NOTE | 2024-09-28 11:17 | P.PCN ---
Date of Procedure: 09/28/24 Description of Procedure: PREOPERATIVE DIAGNOSIS: Gastroesophageal reflux disease. Morbid obesity. Dysphagia POSTOPERATIVE DIAGNOSIS: Gastroesophageal reflux disease. Morbid obesity. Gastritis. Diaphragmatic hiatal hernia OPERATION: Esophagogastroduodenoscopy with cold forceps biopsies along esophagus, antrum and duodenum SURGEON: Sravani Coronado MD ANESTHESIA: MAC. INDICATIONS: The patient is a 46-year-old female who presents with dysphagia and reflux disease. Benefits and risks of the procedure were described. Informed consent was obtained. DESCRIPTION: The patient was brought into the endoscopy suite and laid in the left lateral decubitus position. An Olympus gastroscope was passed along the posterior oropharynx down to the distal esophagus where the squamocolumnar junction was encountered at 40 cm from the incisors. The stomach was entered and no bile reflux was found. Additional findings are listed below. Biopsies with cold forceps were obtained of the antrum. The first through third portion of the duodenum was examined. Retroflexion of the scope confirmed Hill grade 3 lower esophageal valve. The squamocolumnar junction demonstrated LA grade B erosive esophagitis. The stomach was desufflated. The patient tolerated the procedure well. FINDINGS: Squamocolumnar junction 40 cm from the incisors. Diaphragmatic hiatus at 40 cm. Hiatal hernia, 4 cm Hill grade 4 lower esophageal valve. LA grade B erosive esophagitis. Biopsies obtained of the duodenum. Chronic gastritis with biopsies obtained. RECOMMENDATIONS: Upper endoscopy as needed.
[2024-09-28 11:42] VITALS: BP 112/62; PULSE 64
== END 2024-09-28 12:05 | disposition home or self-care (01) ==
LOC: ORWHC2ENDO 10:05
PROVIDERS: ATTEND Surgery Plastic and Reconstructive Surgery
DX: K21.00 Gastro-esophageal reflux disease with esophagitis, without bleeding (principal); K44.9 Diaphragmatic hernia without obstruction or gangrene; K57.30 Diverticulosis of large intestine without perforation or abscess without bleeding; J45.909 Unspecified asthma, uncomplicated; I10 Essential (primary) hypertension; E78.5 Hyperlipidemia, unspecified; E66.01 Morbid (severe) obesity due to excess calories; M19.90 Unspecified osteoarthritis, unspecified site; Z79.82 Long term (current) use of aspirin; Z80.0 Family history of malignant neoplasm of digestive organs; Z87.891 Personal history of nicotine dependence; Z90.89 Acquired absence of other organs; Z79.899 Other long term (current) drug therapy
CPT/HCPCS: 88305; 45378; 43239; J2704